=== PATIENT | male | born 1995 | race Two or more races ===

== ENCOUNTER 2017-11-07 23:34 | Inpatient (IN) | payer MEDICAID ==
[~2017-11-07] VITALS: Ht 190.5 cm; Wt 69.4 kg
[2017-11-08 00:06] LABS: Urine WBC None Seen /hpf (0 - 3)
[2017-11-08 00:16] LABS: Urine Bacteria NONE SEEN /hpf (None Seen); Urine Blood Negative /uL (Negative); Urine Mucus FEW (None Seen); Urine Specific Gravity 1.029 (1.001-1.035)
[2017-11-08 00:30] LABS: Alcohol, Urine < 3.0 mg/dL (0-5); Amphetamine Screen, Urine NEGATIVE (NEGATIVE); Barbiturate Scree,Urine NEGATIVE (NEGATIVE); Benzodiazephine Screen, Urine NEGATIVE (NEGATIVE); Cannabinoid Screen, Urine NEGATIVE (NEGATIVE); Cocaine Screen, Urine NEGATIVE (NEGATIVE); Opiate Scree,Urine NEGATIVE (NEGATIVE); Phencyclidine Screen, Urine NEGATIVE (NEGATIVE)
[2017-11-08 00:50] LABS: Basophils # (auto) 0 uL; Basophils % (auto) 0.2 % (0.0-2.0); Eosinophils # (auto) 0 uL; Eosinophils % (auto) 0.3 % (0.0-7.0); Hematocrit 41.7 % (41.0-53.0); Hemoglobin 14.2 g/dL (13.5-17.5); Lymphocytes # (auto) 1.7 uL; Lymphocytes % (auto) 20.4 % (10.0-50.0); Mean Corpuscular Hemoglobin 29.4 pg (28.0-32.0); Mean Corpuscular Hgb Conc. 34.1 g/dL (32.0-36.0); Mean Corpuscular Volume 86.2 fL (80.0-100.0); Monocytes # (auto) 0.9 uL; Neutrophils # (auto) 5.9 uL; Neutrophils % (auto) 69.1 % (37.0-80.0); Platelet Count (auto) 244 10^3/uL (140-450); Red Blood Cells 4.83 10^6/uL (4.5-5.90); Red Cell Distribution Width 12.3 % (11.8-14.3); White Blood Cell 8.6 10^3/uL (4.4-10.8)
[2017-11-08 01:02] LABS: Salicylate < 1.7 mg/dL (2.8-20.0)
[2017-11-08 01:03] LABS: Alanine Aminotransferase 23 U/L (16-61); Anion Gap 7 (5-15); Aspartate Aminotransferase 38 U/L (15-37); BUN/Creatinine Ratio 18.7; Blood Alcohol < 3.0 mg/dL (0-5); Blood Urea Nitrogen 14 mg/dL (7-18); Calcium 9.2 mg/dL (8.5-10.1); Carbon Dioxide 27 mmol/L (21-32); Chloride 106 mmol/L (98-107); GFR African American 171 mL/min; GFR Non-African American 141 mL/min; Glucose 90 mg/dL (74-106); Potassium 4.1 mmol/L (3.5-5.1); Sodium 140 mmol/L (136-145)
[2017-11-08 01:06] LABS: Alkaline Phosphatase 71 U/L (45-117); Bilirubin, Total 0.4 mg/dL (0.2-1.0); Total Protein 7.5 g/dL (6.4-8.2)
[2017-11-08 01:12] LABS: Acetaminophen < 2.0 ug/mL (10-30)
[2017-11-08] MEDS ORDERED: LORazepam 2MG/ML-1ML VIAL ONE ×2 (07:33→13:14)
[2017-11-08] MEDS ORDERED: HALOPERIDOL LACTATE 5 MG/ML INJ VIAL ONE (07:33)
[2017-11-08] MEDS ORDERED: diphenhdrAMINE HCL 50 MG/1 ML VL ONE (07:34)
[2017-11-08] MEDS ORDERED: EPINEPHrine HCL 1 MG/1 ML AMP IM ONE (07:45)
[2017-11-08] MEDS ORDERED: methylPREDNISolone SOD SUCC 125 MG/2 ML VL IM ONE (07:45)
[2017-11-08] MEDS ORDERED: diphenhdrAMINE HCL 50 MG/1 ML VL IM ONE (07:45)
[2017-11-08] MEDS ORDERED: LORazepam 2MG/ML-1ML VIAL IM ONE (07:45)
[2017-11-08] MEDS ORDERED: HALOPERIDOL LACTATE 5 MG/ML INJ VIAL IM ONE (07:45)
[2017-11-08] MEDS ORDERED: SODIUM CHLORIDE 0.9% 1,000 ML IV ONE (09:26)
[2017-11-08] MEDS ORDERED: MULTIPLE VITAMIN TAB PO ONE (11:30)
[2017-11-08] MEDS ORDERED: ONDANSETRON HCL 4 MG/2 ML VIAL IV PRN (11:30)
[2017-11-08] MEDS ORDERED: HYDROcodone-ACET 5/325MG TAB PO PRN (11:30)
[2017-11-08] MEDS ORDERED: diphenhdrAMINE HCL 25 MG CAP PO PRN (11:30)
[2017-11-08] MEDS ORDERED: ACETAMINOPHEN 325 MG TAB PO PRN (11:30)
[2017-11-08] MEDS ORDERED: NITROGLYCERIN 0.4 MG SL TAB SL PRN (11:30)
[2017-11-08] MEDS ORDERED: DOCUSATE SOD 100 MG CAP PO PRN (11:30)
[2017-11-08] MEDS ORDERED: MORPHINE SULFATE 4 MG/ML SYR/VIAL IV PRN (11:30)
[2017-11-08] MEDS ORDERED: LORazepam 2MG/ML-1ML VIAL IV ONE (13:15)
[2017-11-08] MEDS: SODIUM CHLOR 0.9% PF (SALINE LOCK) 10ML VIAL IV SCH ×2 (13:29→22:02)
[2017-11-08 20:41] VITALS: BP 117/69
[2017-11-08 21:00] VITALS: BP 117/69
[2017-11-08] MEDS: FAMOTIDINE 20 MG TAB PO SCH (22:03)
[2017-11-08 23:24] LABS: Anion Gap 8 (5-15); BUN/Creatinine Ratio 23.3; Blood Urea Nitrogen 14 mg/dL (7-18); Calcium 9.2 mg/dL (8.5-10.1); Carbon Dioxide 25 mmol/L (21-32); Chloride 104 mmol/L (98-107); GFR African American 221 mL/min; GFR Non-African American 183 mL/min; Glucose 107 mg/dL (74-106); Magnesium 2.2 mg/dL (1.6-2.6); Potassium 4.2 mmol/L (3.5-5.1); Sodium 137 mmol/L (136-145)
[2017-11-09] MEDS ORDERED: INFLUENZA QUAD 2017-2018 0.5 ML SYRG IM ONE
[2017-11-09 05:40] VITALS: BP 115/72
[2017-11-09] MEDS: SODIUM CHLOR 0.9% PF (SALINE LOCK) 10ML VIAL IV SCH (05:40)
[2017-11-09 07:14] LABS: Basophils # (auto) 0 uL; Basophils % (auto) 0.1 % (0.0-2.0); Eosinophils # (auto) 0 uL; Eosinophils % (auto) 0.2 % (0.0-7.0); Hematocrit 39.5 % (41.0-53.0); Hemoglobin 13.7 g/dL (13.5-17.5); Lymphocytes # (auto) 2.3 uL; Mean Corpuscular Hemoglobin 29.8 pg (28.0-32.0); Mean Corpuscular Hgb Conc. 34.8 g/dL (32.0-36.0); Mean Corpuscular Volume 85.7 fL (80.0-100.0); Monocytes # (auto) 1.1 uL; Neutrophils # (auto) 5.3 uL; Neutrophils % (auto) 60.7 % (37.0-80.0); Platelet Count (auto) 245 10^3/uL (140-450); Red Blood Cells 4.61 10^6/uL (4.5-5.90); Red Cell Distribution Width 12.6 % (11.8-14.3); White Blood Cell 8.7 10^3/uL (4.4-10.8)
[2017-11-09 07:28] LABS: Albumin 3.7 g/dL (3.4-5.0); BUN/Creatinine Ratio 24.3; Calcium 9.1 mg/dL (8.5-10.1)
[2017-11-09 07:30] LABS: Bilirubin, Total 0.9 mg/dL (0.2-1.0)
[2017-11-09 09:00] VITALS: BP 109/50
[2017-11-09] MEDS: FAMOTIDINE 20 MG TAB PO SCH (09:25)
[2017-11-09] MEDS ORDERED: MULTIPLE VITAMIN TAB PO SCH (10:00)
[2017-11-09 13:00] VITALS: BP 127/51
[2017-11-09 17:00] VITALS: BP 112/61
[2017-11-09 22:00] VITALS: BP 119/77
== END 2017-11-10 04:15 | disposition left against medical advice (07) | DRG 72 ==
LOC: ER 23:37 → TELE 23:38 → TELE-EAST 11-08 20:56
PROVIDERS: ADMIT Internal Medicine; ATTEND Family Medicine
DX: G93.41 Metabolic encephalopathy (principal)
CPT/HCPCS: 36415; 70450; 71045; 80048; 80053; 80307; 80320; 80329; 81001; 82140; 83605; 83735; 84484; 85025; 87040; 87086; 93005; 93306; 93886; 94761; 96361; 96372; 96374; 96375; J0171